=== PATIENT | female | born 1990 | race Caucasian/White ===

== ENCOUNTER → 2016-12-08 | Day surgery (SDC) | payer OTHER ==
[2014-09-07 12:22] VITALS: BMI 25.0
[~2016-12-08] MED LIST: BUPIVACAINE 0.25% 30 ML VIAL ONE; CEFAZOLIN 1 GM VIAL ONE; DEXAMETHASONE 4 MG/ML VIAL IV ONE; FENTANYL 100 MCG/2 ML VIAL IV PRN; FENTANYL 250 MCG/5 ML VIAL IV ONE; GLYCOPYRROLATE 1 MG VIAL IM ONE; HYDROmorphone 1 MG INJECTION IV PRN; KETOROLAC TROMETH 30 MG/ML VIAL IM ONE; LABETALOL 20 MG/4 ML SYRINGE IV PRN; LIDOCAINE 100 MG PFS IV ONE; LIDOCAINE 4% 5 ML AMPULE NEB ONE; MEPERIDINE 25 MG/ML TUBEX IV PRN; MIDAZOLAM 2 MG/2 ML VIAL IV ONE; NEOSTIGMINE 1 MG/1 ML (1:1000) INJ 10 ML MDV IM ONE; ONDANSETRON HCL 4 MG ODT TAB PO PRN; ONDANSETRON HCL 4 MG/2 ML VIAL IV ONE; ONDANSETRON HCL 4 MG/2 ML VIAL IV PRN; OXYCODONE HCL 5 MG TABLET ONE; PROPOFOL 200 MG/20 ML VIAL IV ONE; ROCURONIUM 50 MG/5 ML VIAL IV ONE; SUCCINYLCHOLINE 20 MG/1 ML INJ 10 ML MDV IV ONE; hydrALAZINE 20 MG/ML VIAL IV PRN
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
--- NOTE | 2016-12-08 08:58 | HIMOPRPT ---
DATE OF PROCEDURE: 12/08/16 PREOPERATIVE DIAGNOSIS: Pelvic pain POSTOPERATIVE DIAGNOSIS: Pelvic pain PROCEDURE: Diagnostic laparoscopy SURGEON: Steve Tee MD. ANESTHESIA: General endotracheal tube. COMPLICATIONS: None. ESTIMATED BLOOD LOSS: Minimal. FINDINGS: Clear papules and white plaques of the posterior cul de sac suggestive of endometriosis.Normal uterus, tubes and ovaries. Normal appearing gallbladder and appendix PROCEDURE IN DETAIL: The patient was taken to the operating room and after successful induction of general endotracheal tube anesthesia, was positioned in Jorge stirrups. The abdomen, perineum, and vagina were prepped and draped as a sterile field and the bladder was drained. A 5-mm incision was made at the inferior edge of the umbilicus through which a 5-mm trocar was passed directly into the peritoneal cavity. A pneumoperitoneum was established and the patient was placed in Trendelenburg. Under direct visualization, a second 5-millimeter trocar was placed in the right lower quadrant and a third 5-millimeter trocar was placed in the left lower quadrant. A blunt probe was used to clear bowel from the pelvis and the above findings were noted at that time. The pneumoperitoneum was dropped to 5 mmHg and hemostasis was noted to be adequate at all operative sites at that time. The trocars were removed and the pneumoperitoneum was allowed to escape. The skin incisions were closed with interrupted 4-0 Monocryl sutures and Dermabond. Once sponge and instrument counts were correct x3, the patient was taken to the recovery room in stable condition. There were no specimens.
--- NOTE | 2016-12-08 08:59 | PCM.DCS92 ---
- Primary/Secondary Discharge Diagnoses (1) Pelvic pain Acute R10.2 - PELVIC AND PERINEAL PAIN Present on Admission: Yes - HOSPITAL COURSE /Op Complications: None - DISCHARGE INSTRUCTIONS Discharge Disposition: Home Discharge Condition: Good Cognitive Discharge Status: Unimpaired Fuctional Discharge Status: Independent Patient Leaving with Prescriptions?: Yes Home Medications/ New Prescriptions: No Action Ibuprofen Tablet [Motrin] 800 mg PO Q6-8H PRN #30 tab PRN Reason: Pain Multivitamin [Multivitamins] 1 each PO DAILY Ibuprofen Tablet [Motrin] 800 mg PO Q6-8H PRN #30 tab PRN Reason: Pain Oxycodone HCl/Acetaminophen [Percocet 5-325 mg Tablet] 1 - 2 tab PO Q4H PRN # 60 tab PRN Reason: Pain - Diet Diet at Discharge: Regular - Activity Activity: No Heavy Lifting, Pelvic Rest, No Driving No Driving for: While using pain medications - Instructions Call Physician for: Severe Abdominal Cramps, Pain/Redness in Calf/Leg, Increased Pain at Wound, Temperature Above 100.4, Drainiage from Wound - Incision Incision, Lacerations, or Tears: Yes - DC Summary Notes Discharge Medications: *See "Discharge Medication List" for a complete list of Home Medications and Discharge Medications.*
[2016-12-08 11:06] VITALS: TEMP 97.1
[2016-12-08 11:59] VITALS: PULSE 71
--- NOTE | 2016-12-08 15:42 | SC.ANESPOS ---
Post-Anesthesia Note LOC: Fully Awake Post-Anesthesia Assessment: Awake, Returned to Baseline, Hemodynamically Stable , Pain Control Adequate Phase I & II Recovery Complete: Yes Apparent Anesthesia Complication: No : N PACU Discharge Time: 10:10 - Vital Signs Blood Pressure: 110/66 Pulse: 71 Resp Rate: 18 O2 Sat: 98 Temp: 97.1 F - Comments Anesthesia Discharge Time Report Time 10:10
[2016-12-08 15:43] VITALS: BP 110/66
== END ==
LOC: SDC 06:38
PROVIDERS: ATTEND Obstetrics & Gynecology
PROC: 0WJP4ZZ Inspection of Gastrointestinal Tract, Percutaneous Endoscopic Approach (ICD-10-PCS; principal; 2016-12-08 08:00)
DX: R10.2 Pelvic and perineal pain (principal); J45.909 Unspecified asthma, uncomplicated; G43.909 Migraine, unspecified, not intractable, without status migrainosus; Z79.899 Other long term (current) drug therapy
CPT/HCPCS: 49320; 81025; J0690; J3490; S0020; J0330; J1100; J1885; J2001; J2250; J2405; J2710; J3010